=== PATIENT | male | born 1945 | race Caucasian/White ===

== ENCOUNTER → 2019-03-16 11:04 | Outpatient (POV) | payer SELFPAY | PROVIDERS: Visit Provider Dermatology | DX: Z00.00 Encounter for general adult medical examination without abnormal findings (principal) ==

== ENCOUNTER → 2021-02-20 10:42 | Outpatient (POV) | payer SELFPAY | PROVIDERS: Visit Provider Dermatology | DX: Z00.00 Encounter for general adult medical examination without abnormal findings (principal) ==

== ENCOUNTER → 2021-08-23 19:28 | Outpatient (CLI) | payer MEDICARE, SELFPAY | PROVIDERS: Visit Provider Nurse Practitioner Family | DX: Z20.822 Contact with and (suspected) exposure to COVID-19 (principal) | CPT/HCPCS: C9803; U0003; U0005 ==

== ENCOUNTER → 2022-04-23 07:55 | Outpatient (CLI) | payer MEDICARE, SELFPAY ==
--- NOTE | 2022-04-23 07:59 | MR_ITS ---
FINAL REPORT CLINICAL HISTORY: PAIN IN RIGHT KNEE. KNEE PAIN WHEN MOVING. KNEE INSTABILITY. NO INJURY OR TRAUMA. ENTIRE KNEE PAIN. PT HAD A HARD TIME STAYING STILL. SENT OVER BEST IMAGES. FINDINGS: Multiplanar MR imaging of the right knee was performed without contrast. Motion artifact decreases the sensitivity of many of the images. There is a tear of the body and posterior horn of the medial meniscus. There is a tear of the anterior horn, body, and posterior horn of the lateral meniscus. There is an irregularity of the anterior cruciate ligament, likely a partial tear. The posterior cruciate ligament is intact.There is a small partial tear of the proximal medial collateral ligament. The lateral ligamentous complex is intact. The patellar and quadriceps tendons are intact. There is no evidence of fracture. There are moderate and severe degenerative changes. A moderate joint effusion is seen. The musculature is intact. There are multiple subchondral cysts and osteochondral lesions in the proximal tibia. There is an anterior loose body measuring 11 mm. IMPRESSION: Tears of the medial and lateral menisci. Tears of the anterior cruciate ligament and proximal medial collateral ligaments. Anterior loose body. Degenerative changes and joint effusion. Reviewed, Interpreted and Dictated by Chris Jacobs III, MD Transcribed by Jacinda Stacy Authenticated and [facility]
== END ==
PROVIDERS: PCP Internal Medicine; Visit Provider Internal Medicine
DX: M25.561 Pain in right knee (principal)
CPT/HCPCS: 73721

== ENCOUNTER 2022-09-05 14:00 | Outpatient (RCR) | payer MEDICARE, SELFPAY | END 2022-09-05 14:05 | disposition home or self-care (01) | LOC: PT 14:00 | PROVIDERS: PCP Internal Medicine; Visit Provider Orthopaedic Surgery | DX: M17.11 Unilateral primary osteoarthritis, right knee (principal); Z96.651 Presence of right artificial knee joint | CPT/HCPCS: 97110; 97163; 97164; 97530 ==

== ENCOUNTER → 2023-04-15 11:45 | Outpatient (POV) | payer MEDICARE, SELFPAY | PROVIDERS: Visit Provider Dermatology | DX: Z00.00 Encounter for general adult medical examination without abnormal findings (principal) ==

== ENCOUNTER → 2023-05-27 14:47 | Outpatient (CLI) | payer MEDICARE, SELFPAY ==
--- NOTE | 2023-05-27 14:54 | XR_ITS ---
FINAL REPORT CLINICAL HISTORY: JOINT PAIN FINDINGS: Sacroiliac joints Four views were obtained. There are moderate degenerative changes of the bilateral sacroiliac joints. There is no ankylosis. No obvious erosion or fracture is identified. No soft tissue abnormality is identified. IMPRESSION: No acute bony abnormality. Reviewed, Interpreted and Dictated by Kwasi Andino MD Transcribed by Penny Domingo Authenticated and [facility]
== END ==
PROVIDERS: PCP Internal Medicine; Visit Provider Internal Medicine
DX: M53.3 Sacrococcygeal disorders, not elsewhere classified (principal)
CPT/HCPCS: 72202

== ENCOUNTER 2023-07-15 15:00 | Outpatient (RCR) | payer MEDICARE, SELFPAY | END 2023-07-15 16:00 | disposition home or self-care (01) | LOC: PT 15:00 | PROVIDERS: PCP Internal Medicine; Visit Provider Internal Medicine | DX: M53.3 Sacrococcygeal disorders, not elsewhere classified (principal) | CPT/HCPCS: 20561; 97010; 97014; 97035; 97110; 97163; 97164; 97530; G0283 ==

== ENCOUNTER → 2023-08-19 09:56 | Outpatient (POV) | payer MEDICARE, SELFPAY | PROVIDERS: Visit Provider Dermatology | DX: Z00.00 Encounter for general adult medical examination without abnormal findings (principal) ==

== ENCOUNTER 2023-09-04 11:00 | Outpatient (RCR) | payer MEDICARE, SELFPAY | END 2023-09-04 11:05 | disposition home or self-care (01) | LOC: PT 11:00 | PROVIDERS: PCP Internal Medicine; Visit Provider Internal Medicine | DX: M54.32 Sciatica, left side (principal); M54.50 Low back pain, unspecified | CPT/HCPCS: 20561; 97010; 97014; 97110; 97163; G0283 ==